=== PATIENT | female | born 1965 | race Caucasian/White ===

== ENCOUNTER → 2017-03-26 | Outpatient (CLI) | payer BC ==
[2016-04-23 13:10] VITALS: BP 143/76
[~2017-03-26] MED LIST: ADAL40PE SQ; CALCIU; LORA10TA68 PO; MESA800T2 PO; MULT-208 PO; OMEG1CAP38 PO; calcium
--- NOTE | 2017-03-26 15:35 | RAD ---
DATE: 03/26/2017. EXAM: MAMMO MARISELA SCREENING BILATERAL. HISTORY: Routine mammographic screening. COMPARISON: 02/25/2016, 02/05/2015, 02/02/2014, 01/23/2011. FINDINGS: The breast parenchyma heterogeneously dense, which could reduce sensitivity of mammography. There are no suspicious masses, microcalcifications or architectural distortion. There is a postbiopsy clip superiorly on the right. Parenchymal density has decreased since the prior study versus differences in technique. BI-RADS CATEGORY: 2 BENIGN FINDING(S). RECOMMENDED FOLLOW-UP: 12M 12 MONTH FOLLOW-UP. PQRS compliance statement: Patient information was entered into a reminder system with a target due date 03/26/2018 for the next mammogram. Mammography is a sensitive method for finding small breast cancers, but it does not detect them all and is not a substitute for careful clinical examination. A negative mammogram does not negate a clinically suspicious finding and should not result in delay in biopsying a clinically suspicious abnormality. "Our facility is accredited by the [employer] Mammography Program."
== END | disposition home or self-care (01) ==
LOC: KCIC MAMMO 13:11
PROVIDERS: ATTEND Obstetrics & Gynecology
DX: Z12.31 Encounter for screening mammogram for malignant neoplasm of breast (principal)
CPT/HCPCS: 77063; G0202; 77067

== ENCOUNTER → 2018-03-29 | Outpatient (CLI) | payer BC | END | disposition home or self-care (01) | LOC: KCIC MAMMO 14:31 | DX: Z12.31 Encounter for screening mammogram for malignant neoplasm of breast (principal) | CPT/HCPCS: 77063; 77067 ==